=== PATIENT | female | born 1975 | race Asian ===

== ENCOUNTER 2018-06-14 21:50 | Emergency (ER) | payer OTHER ==
[2018-06-14] MEDS ORDERED: HYDROcodone/Acetaminophen 5/325 mg Tablet ONE (22:12)
[2018-06-14] MEDS ORDERED: Ibuprofen 800 MG TAB ONE (22:12)
[2018-06-14] MEDS ORDERED: Oseltamivir 75 MG CAP ONE (22:12)
== END 2018-06-14 22:39 | disposition home or self-care (01) ==
LOC: SCSER 21:50
DX: J11.1 Influenza due to unidentified influenza virus with other respiratory manifestations (principal)
CPT/HCPCS: 99283